=== PATIENT | male | born 1945 | race Caucasian/White ===

== ENCOUNTER → 2017-03-20 | Outpatient (CLI) | payer MEDICARE, BC ==
[2005-02-22 12:11] VITALS: TEMP 97.6
[~2017-03-20] MED LIST: ASPIR-LOW81 MG PO; FISH OIL CONC1000 MG PO; LISINOPRIL20 MG PO; LUTEIN20 MG PO; PRAVACHOL80 MG PO
== END ==
LOC: COL.RAD 10:48
DX: E05.90 Thyrotoxicosis, unspecified without thyrotoxic crisis or storm (principal)
CPT/HCPCS: A9516

== ENCOUNTER 2017-04-01 10:11 | Emergency (ER) | payer MEDICARE, BC ==
[~2017-04-01] VITALS: Ht 180.3 cm; Wt 91.8 kg
[~2017-04-01 10:11] MED LIST changes: -LISINOPRIL20 MG PO; +PRINIVIL40 MG PO
[2017-04-01 10:15] VITALS: TEMP 97.8
[2017-04-01] MEDS ORDERED: PLAVIX 75MG TAB75 MG PO (10:23)
[2017-04-01] MEDS ORDERED: CRESTOR 10MG10 MG PO (10:23)
[2017-04-01] MEDS ORDERED: TAPAZOLE5 MG PO (10:24)
[2017-04-01 11:00] LABS: COLLECTION METHOD CLEAN CATCH
[2017-04-01 11:05] LABS: BASO % 0.4 % (0.0-2.0); EOS % 0.1 % (0-4.0); GRAN % 77.6 % (42.2-75.2); HEMATOCRIT 47.5 % (42.0-52.0); HEMOGLOBIN 15.8 g/dl (13.5-18.0); LYMPH # 1.1 (1.2-3.4); LYMPH % 14.6 % (20.0-51.0); MEAN CELL VOLUME 91 fl (80.0-100.0); MEAN CORPUSCULAR HEMOGLOBIN 30 pg (27.0-31.0); MEAN CORPUSCULAR HGB CONC 33 g/dl (33.0-37.0); MEAN PLATELET VOLUME 10.2 fl (7.4-10.4); MONO # 0.5 (0.1-0.6); MONO % 6.9 % (1.7-9.3); PLATELET COUNT 232 K/mm3 (130-400); WHITE BLOOD COUNT 7.7 K/mm3 (4.8-10.8)
[2017-04-01 11:17] LABS: ADJUSTED CALCIUM 9.1 mg/dL (8.4-10.2); ALBUMIN 4.8 gm/dL (3.5-5.0); CALCIUM 9.7 mg/dL (8.4-10.2); CREATININE, serum 1.31 mg/dL (0.66-1.25); POTASSIUM 4.6 mmol/L (3.4-5.0); TOTAL PROTEIN 7.8 gm/dL (6.4-8.2)
[2017-04-01 11:19] LABS: AMORPHOUS CRYSTAL Present /uL; MUCOUS Present /lpf; PH 5 (5-8); URINE APPEARANCE Cloudy; URINE BACTERIA None Seen /hpf; URINE BILIRUBIN Negative (NEGATIVE); URINE BLOOD 3+ (NEGATIVE); URINE COLOR Red; URINE GLUCOSE Negative (NEGATIVE); URINE KETONE Negative (NEGATIVE); URINE LEUKOCYTE ESTERASE Negative (NEGATIVE); URINE PROTEIN(semi-quant) 2+ (NEGATIVE); URINE RBC >50 /hpf; URINE UROBILINOGEN Negative (NEGATIVE); URINE WBC None Seen /hpf
[2017-04-01] MEDS ORDERED: NORCO 325 MG-51 TAB PO (12:45)
[2017-04-01] MEDS ORDERED: ZOFRAN 4MG T4 MG/TAB PO (12:45)
[2017-04-01 12:55] VITALS: BP 144/86; PULSE 72
== END 2017-04-01 13:03 | disposition home or self-care (01) ==
LOC: COL.ER 10:11
PROVIDERS: Emergency Medicine
DX: N20.1 Calculus of ureter (principal); I10 Essential (primary) hypertension; E78.5 Hyperlipidemia, unspecified; Z90.89 Acquired absence of other organs; Z79.01 Long term (current) use of anticoagulants; Z86.73 Personal history of transient ischemic attack (TIA), and cerebral infarction without residual deficits; Z79.82 Long term (current) use of aspirin
CPT/HCPCS: J1170; J2405; J7030

== ENCOUNTER → 2017-08-07 | Outpatient (CLI) | payer MEDICARE, BC ==
[~2017-08-07] MED LIST changes: +CRESTOR 10MG10 MG PO; +NORCO 325 MG-51 TAB PO; +PLAVIX 75MG TAB75 MG PO; +TAPAZOLE5 MG PO; +ZOFRAN 4MG T4 MG/TAB PO
== END ==
LOC: MHCPAIN 13:09
DX: G89.29 Other chronic pain (principal); M79.2 Neuralgia and neuritis, unspecified; M79.1 Myalgia; M46.96 Unspecified inflammatory spondylopathy, lumbar region
CPT/HCPCS: G0463

== ENCOUNTER → 2019-01-17 | Outpatient (CLI) | payer MEDICARE, BC | LOC: COL.RAD 08:53 | DX: Z13.89 Encounter for screening for other disorder (principal); E05.90 Thyrotoxicosis, unspecified without thyrotoxic crisis or storm; G31.9 Degenerative disease of nervous system, unspecified; I67.82 Cerebral ischemia | CPT/HCPCS: A9585 ==